=== PATIENT | female | born 1980 | race Two or more races ===

== ENCOUNTER 2024-02-12 08:45 | Inpatient (IN) | payer OTHER ==
[~2024-02-12] VITALS: Ht 170.2 cm; Wt 109.8 kg
[2024-02-12] MEDS ORDERED: TOPROL XL25 M1 PO (09:55)
[2024-02-12] MEDS ORDERED: UCERIS9 MG PO (09:56)
[2024-02-12] MEDS ORDERED: CAMILA0.35 MG (09:56)
[2024-02-12] MEDS ORDERED: PEPCID AC20 MG PO (09:56)
[2024-02-12] MEDS ORDERED: XYZAL5 MG PO (09:56)
[2024-02-12] MEDS ORDERED: PREVACID30 M1 PO (09:56)
[2024-02-19] MEDS ORDERED: POVIDONE-IODINE 118 ML BOTT TOP ONE ×2 (10:25→11:15)
[2024-02-19] MEDS ORDERED: METRONIDAZOLE/SODIUM CHLORIDE 500 MG/100 ML PIGGYBACK IV ONE (10:25)
[2024-02-19] MEDS ORDERED: CEFTRIAXONE SODIUM 2,000 MG VIAL ONE (10:26)
[2024-02-19] MEDS ORDERED: HYDROCORTISONE SODIUM SUCC/PF 100 MG VIAL ONE ×2 (10:31→17:40)
[2024-02-19] MEDS ORDERED: CEFTRIAXONE SODIUM 2,000 MG in 0.9 % SODIUM CHLORIDE 50 ML IV ONE (11:15)
[2024-02-19] MEDS ORDERED: HYDROCORTISONE SODIUM SUCC/PF 100 MG VIAL IV ONE (11:15)
[2024-02-19] MEDS ORDERED: METRONIDAZOLE/SODIUM CHLORIDE 200 ML IV ONE (11:15)
[2024-02-19] MEDS ORDERED: THROMBIN,HU/FIBRINOGEN/CALCIUM 4 ML SYRINGE TOP ONE ×2 (12:15→12:16)
[2024-02-19] MEDS ORDERED: VISTASEAL DUAL APPICATOR 1 EACH APPL TOP ONE ×2 (12:15→12:16)
[2024-02-19] MEDS ORDERED: GABAPENTIN 100 MG CAPSULE PO SCH (13:00)
[2024-02-19] MEDS ORDERED: ONDANSETRON HCL 2 MG/ML VIAL IV SCH (14:00)
[2024-02-19] MEDS ORDERED: RINGERS SOLUTION,LACTATED 1,000 ML IV SCH (14:00)
[2024-02-19] MEDS ORDERED: CEFOXITIN SODIUM 2,000 MG VIAL IV SCH (14:00)
[2024-02-19] MEDS ORDERED: ACETAMINOPHEN 325 MG TABLET PO SCH (14:00)
[2024-02-19] MEDS ORDERED: CEFOXITIN SODIUM 2,000 MG VIAL IV ONE (16:34)
[2024-02-19 17:15] LABS: HEMATOCRIT 36.4 % (36.0-45.00); MEAN CELL VOLUME 83.2 fL (80.00-100.00); MEAN CORPUSCULAR HEMOGLOBIN 27.4 pg (27.00-32.0); PLATELET COUNT 278 K/uL (150-450); RED BLOOD COUNT 4.38 M/uL (4.00-6.00)
[2024-02-19 17:19] LABS: RED CELL DISTRIBUTION WIDTH 16.8 % (11.5-14.5)
[2024-02-19 17:27] LABS: CALCIUM 8.3 mg/dL (8.5-10.1); CREATININE SERUM 0.72 mg/dL (0.55-1.02); GFR 87.99; POTASSIUM 4.04 mEq/L (3.5-5.1)
[2024-02-19] MEDS ORDERED: HYDROCORTISONE SODIUM SUCC/PF 100 MG VIAL IV SCH (18:00)
[2024-02-19] MEDS ORDERED: MORPHINE SULFATE 4 MG/ML CARTRIDGE IV PRN (18:30)
[2024-02-19 21:16] LABS: HEMATOCRIT 34.8 % (36.0-45.00); HEMOGLOBIN 11.2 g/dL (12.0-15.00); MEAN CELL VOLUME 82.5 fL (80.00-100.00); MEAN CORPUSCULAR HEMOGLOBIN 26.6 pg (27.00-32.0); MEAN CORPUSCULAR HGB CONC 32.2 g/dl (32.0-36.0); PLATELET COUNT 299 K/uL (150-450); RED BLOOD COUNT 4.22 M/uL (4.00-6.00); RED CELL DISTRIBUTION WIDTH 16.5 % (11.5-14.5)
[2024-02-20 06:36] LABS: HEMATOCRIT 32.6 % (36.0-45.00); HEMOGLOBIN 10.8 g/dL (12.0-15.00); MEAN CELL VOLUME 83.7 fL (80.00-100.00); MEAN CORPUSCULAR HEMOGLOBIN 27.8 pg (27.00-32.0); MEAN CORPUSCULAR HGB CONC 33.2 g/dl (32.0-36.0); PLATELET COUNT 270 K/uL (150-450); RED CELL DISTRIBUTION WIDTH 16.2 % (11.5-14.5)
[2024-02-20 07:05] LABS: ALBUMIN 2.7 gm/dL (3.4-5.0); BILIRUBIN TOTAL 1.1 mg/dL (0.3-1.2); CALCIUM 8.1 mg/dL (8.5-10.1); CREATININE SERUM 0.86 mg/dL (0.55-1.02); GFR 71.68; GLOBULINA 3.3 G/DL (2.4-3.5); MAGNESIUM 2.1 mg/dL (1.8-2.4); PHOSPHOROUS 3.5 mg/dL (2.5-4.9); POTASSIUM 4.05 mEq/L (3.5-5.1)
[2024-02-20] MEDS ORDERED: SIMETHICONE 125 MG CAPSULE PO SCH (09:00)
[2024-02-20] MEDS ORDERED: METOPROLOL SUCCINATE 25 MG TAB.SR.24H PO SCH (09:00)
== END 2024-02-20 09:59 | disposition home or self-care (01) | DRG 743 ==
LOC: O/R 02-19 07:17 → SURG 02-19 07:17 → OB/GYN 02-19 07:17 → SURG 02-19 08:45 → OB/GYN 02-19 16:22
PROVIDERS: Internal Medicine Geriatric Medicine; Surgery; ADMIT Obstetrics & Gynecology Gynecology; ATTEND Obstetrics & Gynecology Gynecology
PROC: 0UN64ZZ Release Left Fallopian Tube, Percutaneous Endoscopic Approach (ICD-10-PCS; 2024-02-19)
PROC: 0UN14ZZ Release Left Ovary, Percutaneous Endoscopic Approach (ICD-10-PCS; 2024-02-19)
PROC: 0DNN4ZZ Release Sigmoid Colon, Percutaneous Endoscopic Approach (ICD-10-PCS; 2024-02-19)
PROC: 0UT94ZZ Resection of Uterus, Percutaneous Endoscopic Approach (ICD-10-PCS; principal; 2024-02-19 10:15)
PROC: 0UT74ZZ Resection of Bilateral Fallopian Tubes, Percutaneous Endoscopic Approach (ICD-10-PCS; 2024-02-19 10:15)
DX: N72 Inflammatory disease of cervix uteri (principal); K66.0 Peritoneal adhesions (postprocedural) (postinfection); Z20.822 Contact with and (suspected) exposure to COVID-19; N94.6 Dysmenorrhea, unspecified; K59.00 Constipation, unspecified; E66.01 Morbid (severe) obesity due to excess calories; G43.909 Migraine, unspecified, not intractable, without status migrainosus; Z79.52 Long term (current) use of systemic steroids; J30.9 Allergic rhinitis, unspecified